=== PATIENT | male | born 1940 | race Caucasian/White ===

== ENCOUNTER 2019-03-19 08:10 | Inpatient (IN) ==
--- NOTE | 2019-03-15 08:31 | Anesthesiology Consultation ---
Date of Service March 15, 2019 Assessment & Plan (1) Encounter for pre-operative examination: CHECK PT/INR/PTT AM DOS PCP Clearance 03/13/19 = "Pt is clear for surgery on 03/19/19." Chart Review Chart Review: Acceptable Risk for Surgery and Patient NOT seen in Pre Admission Testing Teaching & Discussion Coumadin instructions per surgeon and prescriber. History Surgery Operation Date: 03/19/19 11:30 Proposed Procedures p Left Total Knee Revision, Patella Component Only, Possible Poly Exchange - Farhad Rousseau Height/Weight Height: 5 ft 6 in Weight: 86.183 kg Allergies Allergy/AdvReac Type Severity Reaction Status Date / Time No Known Allergies Allergy Verified 03/13/19 09:56 Medications Home Medications Medication Instructions Recorded Confirmed Last Taken esomeprazole magnesium [Nexium] 40 mg PO QAM 03/13/19 03/13/19 Unknown latanoprost 1 drp OPR QAM 03/13/19 03/13/19 Unknown methylprednisolone [Medrol] 4 mg PO QAM 03/13/19 03/13/19 Unknown psyllium husk [Metamucil] 1 tbsp PO DAILY 03/13/19 03/13/19 Unknown warfarin 5 mg PO DAILY 03/13/19 03/13/19 Unknown Past Medical History Medical History 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 NO LONGER NEEDS MEDICATIONS. Hypertension HX. NO LONGER NEEDS MEDICATIONS. On anticoagulant therapy Osteoarthritis Past Family History Family History Sister Family history of diabetes mellitus Past Surgical History Surgical History History of cataract surgery RIGHT History of colonoscopy History of detached retina repair RIGHT History of esophagogastroduodenoscopy (EGD) History of total knee replacement BILATERAL Hx of transurethral resection of prostate S/P inguinal hernia repair RIGHT SIDE X2 Social History Smoking Status: Former smoker tobacco type: cigarettes Do You Dip or Chew Tobacco: No Smoking End Date: 50 YEARS AGO Hx Alcohol Use: No Hx Substance Use: No substance use type: does not use Testing Laboratory Results 03/12/19 WBC: 8.4 H/H: 15.8/45.0 PLATELETS: 215 SODIUM: 140 POTASSIUM: 4.3 CHLORIDE: 106 CO2: 29 BUN: 19 CREATININE: 1.4 GLUCOSE: 118 PT: 31.7 PTT: 48.6 INR: 3.1 UA/CULTURE: no significant growth Electrocardiogram Date: 03/12/19 Findings: + NSR @ (65) Chest X-Ray Date: 03/12/19 Findings: + NAD
--- NOTE | 2019-03-18 09:31 | History & Physical Report ---
Date of Service March 18, 2019 Assessment & Plan (1) Instability of internal left knee prosthesis: plan is to admit and undergo revision patella and possible polyethylene exchange left knee. History of Present Illness Chief Complaint: left knee pain Pleasant male s/p bilateral knee replacements. His right knee is doing well, but still has continued left knee pain. Workup for infection was negative. His left knee has unresurfaced patella and some instability of ligaments. Pt has tried nsaids, brace and pt with no relief. Plan is to undergo resurfacing of patella and possible upsizing of polyethylene. Pt is on coumadin. 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 NO LONGER NEEDS MEDICATIONS. Hypertension HX. NO LONGER NEEDS MEDICATIONS. On anticoagulant therapy Osteoarthritis Surgical History History of cataract surgery RIGHT History of colonoscopy History of detached retina repair RIGHT History of esophagogastroduodenoscopy (EGD) History of total knee replacement BILATERAL Hx of transurethral resection of prostate S/P inguinal hernia repair RIGHT SIDE X2 Family History Sister Family history of diabetes mellitus Social History Preferred Language: Lao Communication Ability: Effective Compensation Administrator Required: No Beliefs That Will Affect Care: None Current Living Situation: Spouse Other Information That Helps Us Care for You: No Feels Safe at Home: Yes Safety Concerns: Feels Safe At This Time Smoking Status: Former smoker Tobacco Type: cigarettes Do You Dip or Chew Tobacco: No Smoking End Date: 50 YEARS AGO Second Hand Exposure: No Tobacco Cessation Education Requested by Patient: No Hx Alcohol Use: No Hx Substance Use: No Review of Systems All systems reviewed & are unremarkable except as noted in HPI & below Physical Exam Constitutional: WD/WN, vitals as above Neck: trachea midline, no thyromegaly Respiratory: normal respiratory effort, lungs clear to auscultation Cardiovascular: RRR, no murmur, no edema Gastrointestinal (Abdomen): normal bowel sounds, soft, nontender, no hepatosplenomegaly Musculoskeletal: no cyanosis or clubbing, extremities motor strength 5/5 Knee: + limited ROM of knee, + knee ROM with crepitation, + valgus laxity and + varus laxity
[~2019-03-19 08:10] MED LIST: ACETAMINOPHEN 500 MG TAB PO SCH; BUPIVACAINE 0.5 % 5 MG/1 ML PF 10ML VIAL ONE; CEFAZOLIN 2000MG 2,000 MG/15 ML SYR IV SCH; CeleBREX 200 MG CAP PO SCH; FAMOTIDINE 20 MG TAB PO SCH; LR 500ML BOLUS, THEN 15ML/HR IV SCH; LR 60ML/HR IV SCH; METOCLOPRAMIDE HCL 10 MG TABLET PO SCH; ROPIVACAINE 0.5% 5 MG/ML 30 ML VIAL ONE; ROPIVACAINE 0.5% HCL/PF 150 MG, BUPIVACAINE 0.5% MPF 30 ML, EPINEPHrine 30MG/30ML (OR U... INSTIL SCH; TRANEXAMIC ACID 1,000 MG **IV Intra-op IV SCH; TRANEXAMIC ACID 1,000 MG **IV Pre-op IV SCH; dexAMETHasone 4 MG TAB PO SCH
[2019-03-19] MEDS ORDERED: PHENYLEPHRINE 100MCG/ML 5ML SYR ONE (08:40)
[2019-03-19] MEDS ORDERED: PROPOFOL IV EMULSION 10 MG/ML 20 ML VIAL IV ONE ×2 (08:40→10:28)
[2019-03-19] MEDS ORDERED: LIDOCAINE HCL 2% 2 ML VIAL/AMP(20MG/ML) INFIL ONE (08:40)
[2019-03-19] MEDS ORDERED: ePHEDrine sulfate 50 MG/ML SYR ONE (08:40)
[2019-03-19] MEDS ORDERED: MIDAZOLAM HCL 1 MG/ML 2ML VIAL ONE (08:41)
[2019-03-19] MEDS ORDERED: fentaNYL citrate 100 MCG/2 ML VIAL ONE (08:41)
[2019-03-19 09:07] LABS: INR 1.4 (0.9-1.1); Partial Thromboplastin Time 27.8 Seconds (21.0-31.0); Prothrombin Time 14.1 Seconds (9.0-12.0)
--- NOTE | 2019-03-19 09:25 | History & Physical Bridge Note ---
Date of Service March 19, 2019 History & Physical Bridge Note I have examined the patient, reviewed the History & Physical and in the interval since the performance of the History & Physical I have noted the following changes of clinical significance: no changes noted
[2019-03-19] MEDS ORDERED: ORTHO JOINT ANESTHETIC ONE (09:41)
[2019-03-19] MEDS ORDERED: BACITRACIN INJ 50,000 UNIT VIAL ONE (09:41)
[2019-03-19] MEDS ORDERED: ONDANSETRON INJ 2 MG/ML 2 ML VIAL IV PRN ×2 (10:06→13:25)
[2019-03-19] MEDS ORDERED: ATROPINE SULFATE 0.1 MG/ML 10ML SYR IV PRN (10:06)
[2019-03-19] MEDS ORDERED: HYDROmorphone INJ 1 MG/ML SYRINGE IV PRN (10:06)
[2019-03-19] MEDS ORDERED: KETOROLAC 30 MG/ML VIAL IV PRN (10:06)
[2019-03-19] MEDS ORDERED: LABETALOL HCL IV 5 MG/ML 20ML IV PRN (10:06)
[2019-03-19] MEDS ORDERED: ONDANSETRON INJ 2 MG/ML 2 ML VIAL ONE (10:28)
[2019-03-19] MEDS ORDERED: LABETALOL HCL IV 5 MG/ML 20ML IV ONE (11:19)
--- NOTE | 2019-03-19 11:40 | Operative Report ---
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 Rao is a pleasant (male who has unfortunately failed all forms of conservative measures. Therefore, they have decided to undergo elective surgical intervention. All risks and benefits of the surgery were discussed with the patient and the family in entirety. Patient already had his left knee replaced on resurfaced patella. 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 PROCEDURE: The patient was brought to the operating room and properly identified by myself, anesthesia, and staff. Patient was given a spinal anesthesia and placed on the operating table in the supine position. Tourniquets were applied to the [right/left] upper thigh. The leg was then prepped and draped in usual sterile fashion. We made a standard midline approach over the patella and dissected down through the subcutaneous tissue to identify the capsule and performed a medial capsulotomy with the patella everted and the knee flexed. Upon visual inspection of the patella itself was completely denuded of cartilage and had an avascular necrosis appearance of the patella. We then also removed the polyethylene.. We then put the trial components into place. We had very good range of motion, excellent stability, and excellent patella tracking. We removed the trial components and irrigated the wound. We impacted the components in place using antibiotic cement. All excess cement was removed. We then irrigated the wound once more. We closed the capsule with 0 PDS suture, deep dermis with 2-0 Vicryl, and finally the skin with bridger. A sterile dressing was applied. The patient was taken to the recovery room in stable condition. Due to the complex nature of the procedure, the entire surgery was performed with the operational assistance of John Brunermer PA-C. The zoning assistant was under direct supervision, was involved in the actual performance of all aspects of the surgical procedure including hemostasis, tissue retraction and incision, instrument management, patient positioning, and wound closure. I attest to the content of the Intraoperative Record and any orders documented therein. Any exceptions are noted below.
--- NOTE | 2019-03-19 13:07 | Anesthesiology Progress Note ---
Date of Service March 19, 2019 Anesthesia Post Procedure Vital Signs Vital Signs: Temp Pulse Pulse Resp BP Pulse Ox 03/19/19 13:00 62 17 121/79 94 03/19/19 12:50 36.6 C 61 15 123/72 94 03/19/19 12:40 63 17 124/72 99 03/19/19 12:30 64 16 120/80 100 03/19/19 12:20 67 14 131/72 99 03/19/19 12:16 36.2 C L 75 15 117/73 99 03/19/19 08:54 36.8 C 59 L 20 177/94 H 97 Pain Intensity Left Knee: Pain Intensity: 0 Transfer of Care Handoff Completed per policy Notes Mental Status: alert / awake / arousable Patient Amnestic to Procedure: Yes Nausea / Vomiting: adequately controlled Pain: adequately controlled Airway Patency, RR, SpO2: stable & adequate BP & HR: stable & adequate Hydration State: stable & adequate Anesthetic Complications: no major complications apparent
[2019-03-19] MEDS ORDERED: MAGNESIUM HYDROXIDE SUSP 30 ML UDC PO PRN (13:25)
[2019-03-19] MEDS ORDERED: NALOXONE HCL 0.4 MG/1 ML VIAL/CARP IV PRN (13:25)
[2019-03-19] MEDS ORDERED: METOCLOPRAMIDE HCL INJ 5 MG/ML 2 ML VIAL IV PRN (13:25)
[2019-03-19] MEDS ORDERED: OXYCODONE HCL IR 5 MG TAB (IMMEDIATE RELEASE) PO PRN (13:25)
[2019-03-19] MEDS ORDERED: BISACODYL 10 MG SUPP PR PRN (13:25)
[2019-03-19] MEDS: ACETAMINOPHEN 500 MG TAB PO SCH ×2 (14:05→21:27)
[2019-03-19] MEDS: SODIUM CHLORIDE 0.9% 1000ML 1,000 ML IV SCH (14:05)
[2019-03-19] MEDS: CEFAZOLIN 2000MG 2,000 MG/15 ML SYR IV SCH (18:27)
[2019-03-19] MEDS ORDERED: WARFARIN SOD 5 MG TAB PO SCH (18:32)
[2019-03-19] MEDS: DOCUSATE SODIUM 100 MG CAP PO SCH (20:24)
[2019-03-19] MEDS ORDERED: SENNA 8.6 MG TAB PO SCH (21:00)
[2019-03-20] MEDS: SODIUM CHLORIDE 0.9% 1000ML 1,000 ML IV SCH (00:24)
[2019-03-20] MEDS: CEFAZOLIN 2000MG 2,000 MG/15 ML SYR IV SCH (02:15)
[2019-03-20 06:18] LABS: Hematocrit (blood only) 38.7 % (42-52); Hemoglobin 13.7 g/dL (14.0-18.0); Mean Corpuscular Hgb Conc 35.4 g/dL (32-36); Platelet Count 204 K/uL (130-400); RDW Standard Deviation 46.1 fL (36.4-46.3); Red Blood Count 4.35 M/uL (4.7-6.1); White Blood Count 14.08 K/uL (4.8-10.8)
[2019-03-20] MEDS: ACETAMINOPHEN 500 MG TAB PO SCH (06:19)
[2019-03-20 06:46] LABS: Calcium 8.1 mg/dl (8.5-10.1); Creatinine Clr Calc Pharmacy 50.3 ml/min; Est GFR (African American) 62.6; Potassium 3.8 mmol/L (3.5-5.1)
--- NOTE | 2019-03-20 07:47 | Anesthesiology Progress Note ---
Date of Service March 20, 2019 Anesthesia Post Procedure Vital Signs Vital Signs: Temp Pulse Pulse Resp BP Pulse Ox 03/20/19 03:45 37 C 69 16 126/69 97 03/19/19 23:45 36.8 C 64 18 125/65 96 03/19/19 19:51 36.7 C 67 18 124/72 97 03/19/19 16:56 36.6 C 62 16 136/66 94 03/19/19 15:43 36.8 C 62 16 135/65 93 03/19/19 14:14 37.0 C 58 L 16 136/77 95 03/19/19 13:41 60 17 128/78 93 03/19/19 13:15 36.6 C 62 18 126/75 95 03/19/19 13:00 62 17 121/79 94 03/19/19 12:50 36.6 C 61 15 123/72 94 03/19/19 12:40 63 17 124/72 99 03/19/19 12:30 64 16 120/80 100 03/19/19 12:20 67 14 131/72 99 03/19/19 12:16 36.2 C L 75 15 117/73 99 03/19/19 08:54 36.8 C 59 L 20 177/94 H 97 Pain Intensity Left Knee: Pain Intensity: 0 Notes Mental Status: alert / awake / arousable and participated in evaluation Patient Amnestic to Procedure: Yes Nausea / Vomiting: adequately controlled Pain: adequately controlled Airway Patency, RR, SpO2: stable & adequate BP & HR: stable & adequate Hydration State: stable & adequate Anesthetic Complications: no major complications apparent and Pt Satisfied with anesthetic care
[2019-03-20] MEDS: DOCUSATE SODIUM 100 MG CAP PO SCH (08:40)
--- NOTE | 2019-03-20 08:42 | Orthopedic Progress Note ---
Date of Service March 20, 2019 Assessment & Plan (1) Instability of internal left knee prosthesis: Postop day 1 status post resurfacing left patella and polyethylene bearing change in his left TKA. PT and OT protocols today. Weightbearing as tolerated. DVT prophylaxis with aspirin twice daily, SCDs Pain management as currently written. DC planning-patient will be requiring home health services upon discharge. Depending how he progresses with his physical therapy, he might build to be discharged home today. Subjective Postop day 1 status post left total knee arthroplasty polyethylene bearing change and resurfacing left patella Patient is currently sitting up in his chair at the bedside eating his breakfast. He has no complaints this morning. Pain is controlled. He denies shortness of breath, chest pain, lightheadedness. He states that he is hoping to go home today. Physical Exam Physical Exam: Dressings are clean, dry, intact. Calves are soft nontender. Neurovascular is intact. Toes are mobile. Hemovac drainage was 75 cc from the previous shift Results & Data Vital Signs (Past 12 Hours) Vital Signs Temp Pulse Resp BP Pulse Ox 03/20/19 08:10 36.7 C 49 L 18 147/75 H 98 03/20/19 03:45 37 C 69 16 126/69 97 03/19/19 23:45 36.8 C 64 18 125/65 96 Laboratory Results Laboratory Results WBC 14.08 K/uL (4.8-10.8) H 03/20/19 05:46 RBC 4.35 M/uL (4.7-6.1) L 03/20/19 05:46 Hgb 13.7 g/dL (14.0-18.0) L 03/20/19 05:46 Hct 38.7 % (42-52) L 03/20/19 05:46 MCV 89.0 fL (80-100) 03/20/19 05:46 MCH 31.5 pg (25-34) 03/20/19 05:46 MCHC 35.4 g/dL (32-36) 03/20/19 05:46 RDW Std Deviation 46.1 fL (36.4-46.3) 03/20/19 05:46 RDW Coeff of Eddi 14.0 % (11.5-14.5) 03/20/19 05:46 Plt Count 204 K/uL (130-400) 03/20/19 05:46 MPV 11.0 fL (7.4-10.4) H 03/20/19 05:46 PT 14.1 Seconds (9.0-12.0) H 03/19/19 08:43 INR 1.4 (0.9-1.1) H 03/19/19 08:43 APTT 27.8 Seconds (21.0-31.0) 03/19/19 08:43 PTT Ratio 1.0 03/19/19 08:43 Sodium 142 mmol/L (136-145) 03/20/19 05:46 Potassium 3.8 mmol/L (3.5-5.1) 03/20/19 05:46 Chloride 107 mmol/L (98-107) 03/20/19 05:46 Carbon Dioxide 28 mmol/L (21-32) 03/20/19 05:46 Anion Gap 7.0 (3-11) 03/20/19 05:46 BUN 19 mg/dl (7-18) H 03/20/19 05:46 Creatinine 1.28 mg/dl (0.6-1.4) 03/20/19 05:46 Est Cr Clr Drug Dosing 50.3 ml/min 03/20/19 05:46 Est GFR ( Amer) 62.6 03/20/19 05:46 Est GFR (Non-Af Amer) 54.0 03/20/19 05:46 BUN/Creatinine Ratio 15.0 (10-20) 03/20/19 05:46 Glucose 118 mg/dl (70-99) H 03/20/19 05:46 Calcium 8.1 mg/dl (8.5-10.1) L 03/20/19 05:46 Blood Type A Positive 03/19/19 08:43 Antibody Screen NEGATIVE 03/19/19 08:43
[2019-03-20] MEDS ORDERED: PSYLLIUM 58.6% POWDER PACKET PO SCH (09:00)
[2019-03-20] MEDS ORDERED: LATANOPROST 0.005% OP SOLN 2.5 ML BTL OPR SCH (09:00)
[2019-03-20] MEDS ORDERED: PANTOprazole 40 MG TAB PO SCH (09:00)
[2019-03-20] MEDS ORDERED: MULTIVITAMIN TAB PO SCH (09:00)
[2019-03-20] MEDS ORDERED: methylPREDNISolone 4 MG TAB PO SCH (09:00)
--- NOTE | 2019-03-23 14:28 | Discharge Summary ---
DISCHARGE DIAGNOSIS: Instability left knee prosthesis, DJD left patella. SECONDARY DIAGNOSES: History of prostate carcinoma, DVT on warfarin, factor V Leiden mutation, GERD, hyperlipidemia, hypertension. CONSULTATIONS: None. COMPLICATIONS: None. PROCEDURES: Left total knee revision of patella and polyethylene bearing change left knee by Dr. Rousseau on 03/19/2019. BRIEF HISTORY: As dictated in the history and physical. HOSPITAL SUMMARY: The patient was admitted on the above-noted date and had the above-noted surgery performed, which he tolerated well. On the first postoperative day, he was sitting up in his chair at the bedside eating his breakfast. He had no complaints that morning. Pain was controlled. Denied shortness of breath, chest pain or lightheadedness and patient was hoping to go home that day. Dressings were clean, dry and intact. Calves were soft, nontender, neurovascularly intact. Toes were mobile. Hemovac drainage was 75 mL from the previous shift and vital signs were stable. He was afebrile. Hemoglobin was 13.7. He was started on PT and OT protocols, continued on DVT prophylaxis and pain management. He progressed well with his physical therapy and was remaining stable and it was felt he could be discharged to home. For further review, please see chart. LABORATORY AND X-RAY DATA: As per chart. DISCHARGE INSTRUCTIONS: The patient was discharged home in satisfactory condition on 03/20/2019. DIET: Regular. ACTIVITY: Weightbearing as tolerated left lower extremity with a walker. Follow TKA instruction sheets and special care instructions as noted per Dr. Rousseau's printed instructions. Follow up with Dr. Rousseau in 2 weeks. The patient to call for appointment if one has not been made for you. DISCHARGE MEDICATIONS: Cefadroxil 500 mg p.o. b.i.d., hydrocodone/acetaminophen 1 tab p.o. 4-6 hours p.r.n., sennosides 17.2 mg p.o. at bedtime. Resume home meds as listed.
== END 2019-03-20 14:42 | disposition home health service (06) | DRG 488 ==
LOC: ASU 08:10 → 3E 12:35